=== PATIENT | male | born 1955 | race Caucasian/White ===

== ENCOUNTER 2021-11-17 06:32 | Inpatient (IN) | payer MEDICAID ==
[~2021-11-17] VITALS: Ht 182.9 cm; Wt 81.6 kg
[2021-11-17] VITALS (10 sets, daily range): BP systolic 108–138
--- NOTE | 2021-11-17 06:41 | NUR ---
PT BIBA C/O GEN WEAKNESS AND DIZZINESS SINCE 299. PER REPORT WAS COOL, PALE AND DIAPHORETIC ON SCENE. HE DENIES N/V. PMH:DM,HTN PT AAOX4, TURKMEN SPEAKING. PT TO RM1 PLACED ON CARDIAC MONITORS. REPORT GIVEN TO AMINA DIOR
--- NOTE | 2021-11-17 06:42 | NUR ---
Patient triaged and placed in room 1. VSS and patient appears in no acute distress at this time. MD Gimenez notified of need for MSE.
--- NOTE | 2021-11-17 06:48 | NUR ---
# 20 gauge angiocath placed to R AC. Use of asceptic technique. Opsite placed over site. Blood return noted. Flushed with 10 cc of normal saline. No evidence of infiltration noted. Patient tolerated well.
--- NOTE | 2021-11-17 07:00 | NUR ---
Dr. Gimenez at bedside
[2021-11-17 07:09] LABS: BASOPHILS % (AUTO) 0.3 % (0.0-2.0); EOSINOPHILS # (AUTO) 0.1 K/uL (0.0-0.4); EOSINOPHILS % (AUTO) 0.6 % (0.0-4.0); HEMATOCRIT 39.8 % (36-54); HEMOGLOBIN 13.1 g/dL (14.0-18.0); LYMPHOCYTES # (AUTO) 1.4 K/uL (1.0-5.5); LYMPHOCYTES % (AUTO) 11.5 % (20.5-51.5); MEAN CORPUSCULAR HEMOGLOBIN 28 pg (27-31); MEAN CORPUSCULAR HGB CONC 33 % (32-36); MEAN CORPUSCULAR VOLUME 84 fL (79.0-98.0); MONOCYTES # (AUTO) 0.4 K/uL (0.0-1.0); MONOCYTES % (AUTO) 3.2 % (1.7-9.3); NEUTROPHILS # (AUTO) 10.4 K/uL (1.8-7.7); NEUTROPHILS % (AUTO) 84.4 % (40.0-70.0); PLATELET COUNT (AUTO) 210 K/uL (130-430); RED BLOOD CELL COUNT(AUTO) 4.74 MIL/uL (4.2-6.2); WHITE BLOOD COUNT (AUTO) 12.4 K/uL (4.8-10.8)
[2021-11-17] MEDS ORDERED: NACL 0.9% 2,000 ML IV ONE (07:15)
--- NOTE | 2021-11-17 07:24 | NUR ---
Opening Note: Report rcvd from outgoing NOC RN, all cares assumed.
[2021-11-17 07:39] LABS: CALCIUM 9.1 mg/dL (8.4-11.0); CREATININE 0.9 mg/dL (0.55-1.30); POTASSIUM 4.7 mmol/L (3.5-5.1)
[2021-11-17 07:46] LABS: ALBUMIN 3.3 g/dL (3.4-4.8); TOTAL BILIRUBIN 0.7 mg/dL (0.0-1.0)
--- NOTE | 2021-11-17 07:47 | NUR ---
Patient stable in no acute distress and or discomfort, bed low and locked for safety.
[2021-11-17 07:57] LABS: INR 1.1 (0.80-1.20); PROTHROMBIN TIME 11.3 SECS (9.5-12.5)
[2021-11-17] MEDS ORDERED: PIPERACILLIN/TAZO 3.375 GM in NS 50 ML IV ONE (08:30)
[2021-11-17 08:38] LABS: BILIRUBIN,URINE NEGATIVE (NEGATIVE); BLOOD, URINE NEGATIVE (NEGATIVE); CLARITY/URINE CLEAR (CLEAR); COLOR,URINE YELLOW (YELLOW); GLUCOSE,URINE 3+ (NEGATIVE); KETONES,URINE 3+ (NEGATIVE); LEUKOCYTE ESTERASE ,URINE NEGATIVE (NEGATIVE); NITRITE, URINE NEGATIVE (NEGATIVE); PH,URINE 5.5 (5.0-8.0); PROTEIN URINE NEGATIVE (NEGATIVE); UROBILINOGEN,URINE 0.2 (0.2-1.0)
[2021-11-17] MEDS ORDERED: PIPERACILLIN/TAZOBACTAM 3.375 GM/VIAL (ZOSYN) IV ONE (08:49)
[2021-11-17] MEDS ORDERED: NS 500 ML IV ONE (09:15)
--- NOTE | 2021-11-17 09:15 | NUR ---
Patient taken to imaging, elbert with early childhood assistant.
--- NOTE | 2021-11-17 09:46 | NUR ---
Patient returned from imaging, stable AOx4
--- NOTE | 2021-11-17 09:52 | NUR ---
Family at bedside, all questions answered and updates given.
--- NOTE | 2021-11-17 11:10 | NUR ---
Patient attempted to ambualte to bathroom, patient became dizzy and diaphoretic, wheelchair brought and patient guided to chair. Assisted patient to bed.
[2021-11-17] MEDS ORDERED: HYDROCORTISONE SOD SUCC 100 MG/2 ML VIAL IVP ONE (11:15)
[2021-11-17] MEDS ORDERED: NOREPINEPHRINE BITARTRATE 8 MG in NS 246 ML IV ONE (11:15)
[2021-11-17] MEDS ORDERED: NACL 0.9% 1,000 ML IV ONE (11:15)
[2021-11-17] MEDS ORDERED: NOREPINEPHRINE 4 MG/4 ML VIAL IV ONE ×2 (11:24→11:29)
--- NOTE | 2021-11-17 11:46 | NUR ---
Dr. Balderas at bedside
--- NOTE | 2021-11-17 11:48 | NUR ---
Levophed on hold, patient BP 108/61
--- NOTE | 2021-11-17 11:49 | NUR ---
MRSA swab collected and sent to lab
[2021-11-17] MEDS ORDERED: METF-518 PO (12:00)
[2021-11-17] MEDS ORDERED: ROSU10TA2 PO (12:01)
[2021-11-17] MEDS ORDERED: ZIA2.5/6.25 PO (12:01)
--- NOTE | 2021-11-17 12:02 | NUR ---
Med Rec completed
[2021-11-17] MEDS ORDERED: D5NS 1,000 ML IV ONE (12:45)
[2021-11-17] MEDS ORDERED: cefTRIAXone 1 GM in D5W 50 ML IV ONE (12:45)
[2021-11-17] MEDS ORDERED: PANTOPRAZOLE SODIUM 40 MG TAB PO ONE (12:45)
--- NOTE | 2021-11-17 12:50 | NUR ---
Admit bed requested Patient will be admitted to care of Admitted to Tele unit. Diagnosis Syncope Inpatient (Yes or No) Yes Observation (Yes or No) No Orientation concerns or request close to nursing station (Yes or No) NO Covid Status Neg On vent or bipap No Isolation requirements No Needs a sitter No From Home (Yes or if No enter name of facility) Home Requires Dialysis (Yes or No) No Med Rec Completed (Yes of No) Yes
--- NOTE | 2021-11-17 12:55 | NUR ---
Patient awake, follows basic commands, no acute distress noted. Bed low and locked for safety.
[2021-11-17] MEDS ORDERED: cefTRIAXone 1 GM VIAL ONE (13:33)
[2021-11-17] MEDS: VANCOMYCIN HCL 1 GM/NS PREMIX 250 ML IV SCH (15:25)
[2021-11-17] MEDS: ALBUMIN HUMAN 25% 100 ML IV SCH ×2 (15:37→21:28)
--- NOTE | 2021-11-17 16:00 | NUR ---
RN NOTES ADMITTED FROM ER , CAME IN VIA GUILHERME ACCOMPANIED BY ER/RN. PATIENT SEEN AWAKE AND ALERT, NOT IN ACUTE DISTRESS, DENIES ANY FORM OF DISCOMFORT, WITH LEVOPHED GOING ON FOR BP SUPPORT. PT PLACED COMFORTABLY ON BED, INITIAL VITALS CHECKED AND RECORDED. PATIENT MADE COMFORTABLE. WILL CONTINUE TO MONITOR.
--- NOTE | 2021-11-17 16:00 | NUR ---
Patient received from ED with 3 RN's escorting patient from ED. Patient was transferred from the [facility] to the bed and report was given at bedside. Completed initial assessment and reinsersted IV (22 gauge in left hand). Patient visited with and brother for a short period and then they departed. Patient went back to sleep. Labs were drawn and additional orders were obtained at thi time. Patient is currently resting comfortable showing no signs or symptoms of acute distress, diaphoresis or any other examples of sepsis at this time. Patient has not pains or other needs at the end of shift.
--- NOTE | 2021-11-17 16:09 | NUR ---
Patient will be admitted to care of Dr. Balderas. Admitted to ICU unit. Will go to room ICU 6 Belongings list completed. Complete and up to date summary report printed. SBAR report to be given at bedside with opportunity for questions.
[2021-11-17 17:46] LABS: BASOPHILS % (AUTO) 0.1 % (0.0-2.0); HEMATOCRIT 29.8 % (36-54); HEMOGLOBIN 9.8 g/dL (14.0-18.0); LYMPHOCYTES # (AUTO) 1.3 K/uL (1.0-5.5); LYMPHOCYTES % (AUTO) 12.6 % (20.5-51.5); MEAN CORPUSCULAR HEMOGLOBIN 28 pg (27-31); MEAN CORPUSCULAR HGB CONC 33 % (32-36); MONOCYTES # (AUTO) 0.4 K/uL (0.0-1.0); MONOCYTES % (AUTO) 3.6 % (1.7-9.3); NEUTROPHILS # (AUTO) 8.9 K/uL (1.8-7.7); NEUTROPHILS % (AUTO) 83.7 % (40.0-70.0); PLATELET COUNT (AUTO) 168 K/uL (130-430); RED BLOOD CELL COUNT(AUTO) 3.48 MIL/uL (4.2-6.2); RED CELL DISTRIBUTION WIDTH 14.1 % (9.0-15.0); WHITE BLOOD COUNT (AUTO) 10.6 K/uL (4.8-10.8)
[2021-11-17 17:49] LABS: MEAN CORPUSCULAR VOLUME 86 fL (79.0-98.0)
[2021-11-17 17:53] LABS: ANION GAP 11 (5-15); CALCIUM 8.4 mg/dL (8.4-11.0); CHLORIDE 107 mmol/L (98-107); CREATININE 0.87 mg/dL (0.55-1.30); GLUCOSE 209 mg/dL (70-99); POTASSIUM 4.4 mmol/L (3.5-5.1); UREA NITROGEN, BLOOD 63 mg/dL (8-21)
[2021-11-17 17:55] LABS: GFR AFRICAN AMERICAN 113 mL/min (>90)
[2021-11-17 17:59] LABS: ALANINE AMINOTRANSFERASE 19 U/L (12-78); ALBUMIN 3.2 g/dL (3.4-4.8); ASPARTATE AMINOTRANSFERASE 12 U/L (10-37); C-REACTIVE PROTEIN QUANT < 0.2 mg/dL (0-0.5); TOTAL BILIRUBIN 0.6 mg/dL (0.0-1.0)
--- NOTE | 2021-11-17 19:15 | NUR ---
Opening notes Received report from endorsing morning shift RN Talib for continuity of care. Patient is sitting in bed with IVF D5NS @ 100 mL/hr. Patient's vital signs blood pressure 125/66, heart rate 104, and SPO2 95% room air. Patient uses urinal, yellow in color. Bed is locked and in lowest position, call light button within reach, fall and safety precautions is in place.
[2021-11-17] MEDS ORDERED: ALBUMIN HUMAN 25% 100 ML IV ONE (21:28)
[2021-11-17] MEDS ORDERED: INSULIN ASPART 100 UNITS/ML, 10 ML VIAL (NovoLOG) SUBCUT PRN (21:30)
--- NOTE | 2021-11-17 21:41 | NUR ---
CONSULTATION PAGED/CALLED Reason for Consultation: R/O GI BLEEDING Person Who was Notified: RAMONITA Consulting Physician: DR. ARMSTRONG Telegraph Lineman Specialty: GI Ordering Physician: DR. PEDROZA
--- NOTE | 2021-11-17 21:57 | NUR ---
MD Dr. Carrion called for updates, gave verbal report. New order given, please see emar.
[2021-11-17] MEDS ORDERED: PANTOPRAZOLE SODIUM 80 MG in NS 100 ML IV ONE (22:00)
[2021-11-17] MEDS ORDERED: METOCLOPRAMIDE HCL 10 MG/2 ML VIAL IVP ONE (22:00)
--- NOTE | 2021-11-17 22:15 | NUR ---
Greenhouse Manager Used drywall applicator to get consent from the patient for EGD procedure tomorrow morning. Greenhouse Manager ID #[id number]
[2021-11-17] MEDS ORDERED: PANTOPRAZOLE SODIUM 40 MG/VIAL (PROTONIX) ONE ×2 (22:20→23:23)
[2021-11-17] MEDS: PANTOPRAZOLE SODIUM 40 MG in NS 50 ML IV SCH (23:22)
[2021-11-18] VITALS (17 sets, daily range): BP systolic 84–132
[2021-11-18] MEDS ORDERED: ALBUMIN HUMAN 25% 100 ML IV ONE (00:45)
[2021-11-18] MEDS: ALBUMIN HUMAN 25% 100 ML IV SCH (00:55)
[2021-11-18] MEDS ORDERED: PANTOPRAZOLE SODIUM 40 MG/VIAL (PROTONIX) ONE ×2 (02:15→07:11)
[2021-11-18] MEDS: PANTOPRAZOLE SODIUM 40 MG in NS 50 ML IV SCH ×2 (02:20→07:07)
[2021-11-18] MEDS: VANCOMYCIN HCL 1 GM/NS PREMIX 250 ML IV SCH ×2 (02:38→14:05)
[2021-11-18] MEDS ORDERED: METOCLOPRAMIDE HCL 10 MG/2 ML VIAL IVP ONE (06:00)
[2021-11-18] MEDS ORDERED: METOCLOPRAMIDE HCL 10 MG/2 ML VIAL ONE (06:09)
[2021-11-18] MEDS: D5NS 1,000 ML IV SCH ×2 (06:26→14:04)
[2021-11-18 06:34] LABS: BASOPHILS % (AUTO) 0.3 % (0.0-2.0); EOSINOPHILS # (AUTO) 0.1 K/uL (0.0-0.4); EOSINOPHILS % (AUTO) 0.7 % (0.0-4.0); HEMATOCRIT 23.3 % (36-54); HEMOGLOBIN 7.9 g/dL (14.0-18.0); LYMPHOCYTES # (AUTO) 1.4 K/uL (1.0-5.5); LYMPHOCYTES % (AUTO) 18.4 % (20.5-51.5); MEAN CORPUSCULAR HEMOGLOBIN 28 pg (27-31); MEAN CORPUSCULAR HGB CONC 34 % (32-36); MEAN CORPUSCULAR VOLUME 84 fL (79.0-98.0); MONOCYTES # (AUTO) 0.5 K/uL (0.0-1.0); NEUTROPHILS # (AUTO) 5.7 K/uL (1.8-7.7); NEUTROPHILS % (AUTO) 73.6 % (40.0-70.0); PLATELET COUNT (AUTO) 133 K/uL (130-430); RED BLOOD CELL COUNT(AUTO) 2.77 MIL/uL (4.2-6.2); RED CELL DISTRIBUTION WIDTH 14.1 % (9.0-15.0); WHITE BLOOD COUNT (AUTO) 7.8 K/uL (4.8-10.8)
[2021-11-18] MEDS ORDERED: MIDAZOLAM HCL 5 MG/5 ML VIAL ONE (07:21)
[2021-11-18] MEDS ORDERED: MEPERIDINE 100 MG INJ. 100 MG/ML VIAL ONE (07:21)
[2021-11-18 07:22] LABS: ALBUMIN 3.6 g/dL (3.4-4.8); CALCIUM 8.2 mg/dL (8.4-11.0); CREATININE 0.71 mg/dL (0.55-1.30); POTASSIUM 3.5 mmol/L (3.5-5.1); TOTAL BILIRUBIN 0.7 mg/dL (0.0-1.0)
[2021-11-18] MEDS ORDERED: SIMETHICONE 40 MG/0.6 ML ML ONE (07:28)
[2021-11-18 08:07] LABS: % FREE PSA 37.5 % (.); FREE PSA 0.15 ng/mL; PROSTATE SPECIFIC AG TOTAL 0.4 ng/mL (0.0-4.0)
[2021-11-18] MEDS ORDERED: PANTOPRAZOLE SODIUM 40 MG TAB PO SCH (09:00)
--- NOTE | 2021-11-18 11:27 | NUR ---
patient blood glucoses:152, npo at this time, no insulin coverage, will continue to monitor.
--- NOTE | 2021-11-18 15:45 | NUR ---
report at this time given to jillian robles all questions answered
--- NOTE | 2021-11-18 16:12 | NUR ---
patient transferred at this time, via wheelchair, patient vitals wnl, patient denies any pain. all belongings with patient. patient phone, boiler engineer and clothes. nurse jillian at bedside all questions answered, chart given to RN.
--- NOTE | 2021-11-18 16:15 | NUR ---
TRANSFER: PATIENT TRANSFER FROM ICU TO ROOM 118B. PATIENT IS AAOX4 ABLE TO MAKE NEEDS KNOWN. AMBULATE WITH STEADY GAIT. NO C/O PAIN OR DISTRESS. EXPLAINED POC W/ COUSIN AT THE BEDSIDE DOING THE TRANSLATION AND PATIENT VERBALIZED UNDERSTANDING. BED IN LOW AND LOCK POSITION. CALL LIGHT AND BEDSIDE TABLE WITHIN REACH. STABLE CONDITION AT THIS TIME.
--- NOTE | 2021-11-18 18:43 | NUR ---
CLOSING NOTES: PATIENT IS SITTING AT THE SIDE OF THE BED CHIT CHATTING WITH HIS DAUGHTER AND OTHER FAMILY MEMBER AT THE BEDSIDE. NO ADDITIONAL DISTRESS OR PAIN NOTED. ALL NEEDS MET. STABLE CONDITION AT THIS TIME.
--- NOTE | 2021-11-18 19:20 | NUR ---
Received report at this time. Unable to clear up EMAR. All meds reported as late were given prior to shift per dayshift nurse. Pt received meds in procedure and that nurse utilizes paper documentation. BARBY Kendrick shift is 11/18/2021 [id number]
[2021-11-18] MEDS: PANTOPRAZOLE SODIUM 40 MG/VIAL (PROTONIX) IVP SCH (20:05)
--- NOTE | 2021-11-18 21:24 | NUR ---
CONSULTATION CALLED FOR DR Fili RANDOLPH FOR CONSULT OF LEUKOCYTOSIS ORDER BY DR. Beatriz HOLLOWAY SPOKE WITH NATTY
[2021-11-19 00:33] VITALS: BP_SYST 100
[2021-11-19] MEDS: D5NS 1,000 ML IV SCH ×2 (02:00→05:49)
[2021-11-19] MEDS ORDERED: VANCOMYCIN HCL 1000 MG/VIAL IV ONE (02:57)
[2021-11-19] MEDS: VANCOMYCIN HCL 1 GM/NS PREMIX 250 ML IV SCH (03:14)
[2021-11-19 06:59] LABS: ALBUMIN 3.1 g/dL (3.4-4.8); BASOPHILS % (AUTO) 0.5 % (0.0-2.0); CALCIUM 7.9 mg/dL (8.4-11.0); CREATININE 0.66 mg/dL (0.55-1.30); EOSINOPHILS # (AUTO) 0.2 K/uL (0.0-0.4); EOSINOPHILS % (AUTO) 3.3 % (0.0-4.0); LYMPHOCYTES # (AUTO) 1.1 K/uL (1.0-5.5); LYMPHOCYTES % (AUTO) 15.6 % (20.5-51.5); MEAN CORPUSCULAR HEMOGLOBIN 28 pg (27-31); MEAN CORPUSCULAR HGB CONC 34 % (32-36); MEAN CORPUSCULAR VOLUME 84 fL (79.0-98.0); MONOCYTES # (AUTO) 0.4 K/uL (0.0-1.0); MONOCYTES % (AUTO) 5.7 % (1.7-9.3); NEUTROPHILS # (AUTO) 5.1 K/uL (1.8-7.7); NEUTROPHILS % (AUTO) 74.9 % (40.0-70.0); PLATELET COUNT (AUTO) 129 K/uL (130-430); POTASSIUM 3.8 mmol/L (3.5-5.1); RED BLOOD CELL COUNT(AUTO) 2.44 MIL/uL (4.2-6.2); RED CELL DISTRIBUTION WIDTH 14.1 % (9.0-15.0); TOTAL BILIRUBIN 0.5 mg/dL (0.0-1.0); WHITE BLOOD COUNT (AUTO) 6.8 K/uL (4.8-10.8)
--- NOTE | 2021-11-19 07:30 | NUR ---
OPENING NOTES: PATIENT IS RESTING IN BED QUIETLY. AAOX4, ABLE TO MAKE NEEDS KNOWN. AMBULATE WITH STEADY GAIT. NO C/O PAIN OR DISTRESS. BED IN LOW AND LOCK POSITION. CALL LIGHT AND BEDSIDE TABLE WITHIN REACH. STABLE CONDITION AT THIS TIME
[2021-11-19 08:00] VITALS: BP_SYST 108
[2021-11-19 08:16] LABS: HEMATOCRIT 20.5 % (36-54); HEMOGLOBIN 6.9 g/dL (14.0-18.0)
[2021-11-19] MEDS: PANTOPRAZOLE SODIUM 40 MG/VIAL (PROTONIX) IVP SCH ×2 (08:21→20:46)
--- NOTE | 2021-11-19 08:53 | NUR ---
[phone]: SPOKE WITH Juan Carlos ONEILL AND GAVE NEW ORDER OF 1U PRBC TO TRANSFUSE TODAY.
--- NOTE | 2021-11-19 09:25 | NUR ---
TRANSFUSION CONSENT: VIDEO CALL ADZING AND BORING MACHINE FEEDER (KEN #[id number]) WAS USED TO TRANSLATE 1U PRBC TRANSFUSION TODAY. PATIENT VERBALIZED UNDERSTANDING AND SIGNED CONSENT.
--- NOTE | 2021-11-19 09:30 | NUR ---
2U PRBC: DR. SALGADO AT THE BEDSIDE AND ORDER 2U OF PRBC INSTEAD OF 1U PRBC AND EXPLAINED POC TO PATIENT. MD ABLE TO SPEAK GEORGIAN WITH PATIENT. PATIENT VERBALIZED UNDERSTANDING.
--- NOTE | 2021-11-19 11:30 | NUR ---
NPO: NPO FOR U/S ABD COMPLETE TODAY TO R/O GALLSTONES TILL 1600. BLOOD SUGAR 208. HELD INSULIN.
[2021-11-19 12:00] VITALS: BP_SYST 121
[2021-11-19] MEDS: VANCOMYCIN HCL 1,250 MG in NS 250 ML IV SCH ×2 (15:19→21:13)
[2021-11-19 16:00] VITALS: BP_SYST 122
--- NOTE | 2021-11-19 16:30 | NUR ---
US ABD COMPLETE: TECH AT THE BEDSIDE.
--- NOTE | 2021-11-19 18:41 | NUR ---
CLOSING NOTES: PATIENT IS RESTING IN BED WATCHING TV. NO ADDITIONAL DISTRESS OR PAIN NOTED. ALL NEEDS MET. STABLE CONDITION AT THIS TIME.
--- NOTE | 2021-11-19 19:30 | NUR ---
Opening note Received report from day shift. Pt is awake sitting up at the edge of the bed, no s/s of respiratory distress. Breathing even and unlabored. No c/o of pain. IV site intact and patent saline lock. Fall and safety precautions in place with bed in lowest position and call light within reach
[2021-11-19 20:00] VITALS: BP_SYST 122
--- NOTE | 2021-11-20 00:15 | NUR ---
Rounds Pt is awake lying in bed using his cellphone. No s/s of acute distress. VSS. Fall and safety checks in place
[2021-11-20 00:50] VITALS: BP_SYST 117
--- NOTE | 2021-11-20 04:04 | NUR ---
BLOOD BANK: Per blood bank there is a shortage of O positive blood from [place], 2 units of PRBCs still not delivered
[2021-11-20] MEDS: VANCOMYCIN HCL 1,250 MG in NS 250 ML IV SCH ×2 (06:09→14:47)
--- NOTE | 2021-11-20 06:47 | NUR ---
Closing note Pt is awake sitting up in bed. No s/s of acute distress. Denies dizziness or BM last night or this morning. Still waiting on PRBCs, will endorse to day nurse. Fall and safety checks in place with bed in lowest position and call light within reach
[2021-11-20 08:09] LABS: ALANINE AMINOTRANSFERASE 18 U/L (12-78); ALBUMIN 3.2 g/dL (3.4-4.8); ANION GAP 6 (5-15); ASPARTATE AMINOTRANSFERASE 14 U/L (10-37); CALCIUM 8.1 mg/dL (8.4-11.0); CHLORIDE 104 mmol/L (98-107); CREATININE 0.76 mg/dL (0.55-1.30); GLUCOSE 159 mg/dL (70-99); TOTAL BILIRUBIN 0.7 mg/dL (0.0-1.0); UREA NITROGEN, BLOOD 7 mg/dL (8-21)
[2021-11-20 08:48] LABS: C-REACTIVE PROTEIN QUANT < 0.2 mg/dL (0-0.5); GFR AFRICAN AMERICAN 132 mL/min (>90)
[2021-11-20] MEDS ORDERED: GLUCOSE (DEXTROSE) ORAL GEL -Adults PO PRN (09:00)
[2021-11-20] MEDS ORDERED: DEXTROSE 50%-WATER 50 ML DISP.SYRIN IVP PRN (09:00)
[2021-11-20] MEDS ORDERED: D5W 1,000 ML IV PRN (09:00)
[2021-11-20 09:40] LABS: BASOPHILS % (AUTO) 0.3 % (0.0-2.0); EOSINOPHILS # (AUTO) 0.2 K/uL (0.0-0.4); EOSINOPHILS % (AUTO) 4.3 % (0.0-4.0); HEMOGLOBIN 7.1 g/dL (14.0-18.0); LYMPHOCYTES % (AUTO) 19.7 % (20.5-51.5); MEAN CORPUSCULAR HEMOGLOBIN 29 pg (27-31); MEAN CORPUSCULAR HGB CONC 34 % (32-36); MEAN CORPUSCULAR VOLUME 85 fL (79.0-98.0); MONOCYTES # (AUTO) 0.4 K/uL (0.0-1.0); MONOCYTES % (AUTO) 7.4 % (1.7-9.3); NEUTROPHILS # (AUTO) 3.4 K/uL (1.8-7.7); NEUTROPHILS % (AUTO) 68.3 % (40.0-70.0); PLATELET COUNT (AUTO) 127 K/uL (130-430); RED BLOOD CELL COUNT(AUTO) 2.48 MIL/uL (4.2-6.2); RED CELL DISTRIBUTION WIDTH 14.1 % (9.0-15.0); WHITE BLOOD COUNT (AUTO) 4.9 K/uL (4.8-10.8)
[2021-11-20] MEDS: PANTOPRAZOLE SODIUM 40 MG/VIAL (PROTONIX) IVP SCH (09:58)
[2021-11-20 10:24] LABS: HEMATOCRIT 21.1 % (36-54)
[2021-11-20 11:29] VITALS: BP_SYST 122
[2021-11-20 12:08] LABS: ERYTHROCYTE SEDIMENTATION RATE 10 MM/HR (0-15)
--- NOTE | 2021-11-20 13:30 | NUR ---
bs 213. pt refused for insulin as per ss. primary rn raul made aware.
[2021-11-20] MEDS ORDERED: INSULIN LISPRO SLIDING SCALE 100 UNITS/ML, 3 ML VIAL (humaLOG) SUBCUT PRN (13:45)
[2021-11-20] MEDS ORDERED: PRO40 PO ×2 (15:15→15:16)
[2021-11-20] MEDS ORDERED: SUCR1TAB2 PO (15:17)
--- NOTE | 2021-11-20 15:50 | NUR ---
Dietitian Recommendations * When medically appropriate, advance to GI soft diet * Encourage good PO intake * Recommend daily MVI Please refer to nutrition assessment for details, thanks! CC, MPH, RDN
--- NOTE | 2021-11-20 16:24 | NUR ---
0800: NO ABDOMINAL DISCOMFORT NOTED. HGB 7.1, TO RECEIVE 1 UNIT PRBC TRANSFUSION ONCE BLOOD IS AVAILABLE. NO S/S OF ANY BLEEDING NOTED. WILL CONTINUE TO REASSESS PATIENT PRN. 1120: BLOOD TRANSFUSION STARTED, WILL CONTINUE TO ASSESS FOR ANY ADVERSE REACTION DURING AND POST TRANSFUSION 1500: BLOOD TRANSFUSION COMPLETED NO ADVERSE REACTION NOTED. WILL CONTINUE TO MONITOR PATIENT. 1600: PATIENT DISCHARGE HOME WITH NEW PRESCRIPTION FOR PROTONIX AND CARAFATE. TO CONTINUE OTHER HOME MEDICATION BEFORE. PATIENT FAMILY AND PATIENT BOTH VERBALIZE UNDERSTANDING AND WILL COMPLY WITH INSTRUCTION GIVEN.
--- NOTE | 2021-11-21 08:35 | NUR ---
Dispo code 01
== END 2021-11-20 16:24 | disposition home or self-care (01) | DRG 240 ==
LOC: SED 06:32 → STU 12:37 → SIC 16:08 → OBSVTOIN 16:39 → STU 11-18 16:00
PROVIDERS: ADMIT Specialist; ATTEND Specialist
PROC: 0DB78ZX Excision of Stomach, Pylorus, Via Natural or Artificial Opening Endoscopic, Diagnostic (ICD-10-PCS; principal; 2021-11-18 08:00)
DX: C16.9 Malignant neoplasm of stomach, unspecified (principal); N17.9 Acute kidney failure, unspecified; K25.4 Chronic or unspecified gastric ulcer with hemorrhage; A04.5 Campylobacter enteritis; E44.1 Mild protein-calorie malnutrition; D64.9 Anemia, unspecified; E11.65 Type 2 diabetes mellitus with hyperglycemia; E66.9 Obesity, unspecified; E78.00 Pure hypercholesterolemia, unspecified; E78.5 Hyperlipidemia, unspecified; E86.0 Dehydration; F17.200 Nicotine dependence, unspecified, uncomplicated; I10 Essential (primary) hypertension; J44.9 Chronic obstructive pulmonary disease, unspecified; K29.70 Gastritis, unspecified, without bleeding; K29.80 Duodenitis without bleeding; Z20.822 Contact with and (suspected) exposure to COVID-19; Z79.84 Long term (current) use of oral hypoglycemic drugs; Z79.899 Other long term (current) drug therapy; Z68.24 Body mass index [BMI] 24.0-24.9, adult; Z56.0 Unemployment, unspecified
CPT/HCPCS: 36415; 36600; 43239; 71045; 76376; 76700-TC; 80048; 80053; 80202; 81003; 82272; 82533; 82803-TC; 82962; 83036; 83605; 83690; 84153; 84484; 85025; 85379; 85610-TC; 85651-TC; 85730-TC; 86140; 86886; 86900; 86901; 86920; 87040; 87081; 87086; 88305; 88312; 88313; 88342; 93005; 93306; 96365; 96375; 99291; C9113; G0378; J0696; J1720; J1815; J2175; J2250; J2543; J2765; J3370; J7030; J7042; J7050; J7060; P9021; P9046

== ENCOUNTER 2022-04-10 01:41 | Emergency (ER) | payer MEDICAID ==
[~2022-04-10] VITALS: Ht 175.3 cm; Wt 74.4 kg
[~2022-04-10 01:41] MED LIST: METF-518 PO; PRO40 PO; ROSU10TA2 PO; SUCR1TAB2 PO; ZIA2.5/6.25 PO
[2022-04-10 01:46] VITALS: BP_SYST 113
--- NOTE | 2022-04-10 01:46 | NUR ---
Patient triaged and placed in ER bed 5 for evaluation. VSS, denied any acute respiratory distress at this time. Son at bedside. Report given to Kim DIOR for continuity of care. Instructed to notify ED staff for any changes in condition or worsening of symptoms. Patient verbalized understanding.
--- NOTE | 2022-04-10 01:58 | NUR ---
Dr. Sousa at bedside examining the patient.
--- NOTE | 2022-04-10 02:02 | NUR ---
ACTIVATED CODE STROKE PER DR. ALICEA.
--- NOTE | 2022-04-10 02:03 | NUR ---
PRESS BOX CUSTODIAN AT BEDSIDE.
--- NOTE | 2022-04-10 02:05 | NUR ---
# 20 gauge angiocath placed to R AC. Use of asceptic technique. Opsite placed over site. Blood return noted. Blood for lab drawn from site. Flushed with 10 cc of normal saline. No evidence of infiltration noted. Patient tolerated well.
--- NOTE | 2022-04-10 02:07 | NUR ---
TELEHEALTH AT BEDSIDE.
[2022-04-10 02:55] LABS: BASOPHILS % (AUTO) 0.5 % (0.0-2.0); EOSINOPHILS # (AUTO) 0.1 K/uL (0.0-0.4); EOSINOPHILS % (AUTO) 1.5 % (0.0-4.0); HEMATOCRIT 27.6 % (36-54); LYMPHOCYTES # (AUTO) 1.3 K/uL (1.0-5.5); LYMPHOCYTES % (AUTO) 25.8 % (20.5-51.5); MEAN CORPUSCULAR HEMOGLOBIN 34 pg (27-31); MEAN CORPUSCULAR HGB CONC 33 % (32-36); MEAN CORPUSCULAR VOLUME 103 fL (79.0-98.0); MONOCYTES # (AUTO) 0.5 K/uL (0.0-1.0); MONOCYTES % (AUTO) 10.7 % (1.7-9.3); NEUTROPHILS % (AUTO) 61.5 % (40.0-70.0); PLATELET COUNT (AUTO) 300 K/uL (130-430); RED BLOOD CELL COUNT(AUTO) 2.67 MIL/uL (4.2-6.2); RED CELL DISTRIBUTION WIDTH 27.1 % (9.0-15.0); WHITE BLOOD COUNT (AUTO) 4.9 K/uL (4.8-10.8)
[2022-04-10 03:14] LABS: CALCIUM 8.6 mg/dL (8.4-11.0); CREATININE 0.43 mg/dL (0.55-1.30)
--- NOTE | 2022-04-10 03:17 | NUR ---
RAD at bedside for imaging.
[2022-04-10 03:20] LABS: INR 1.2 (0.80-1.20); PROTHROMBIN TIME 11.9 SECS (9.5-12.5)
[2022-04-10 03:27] LABS: TOTAL BILIRUBIN 0.6 mg/dL (0.0-1.0)
[2022-04-10 03:41] LABS: BILIRUBIN,URINE NEGATIVE (NEGATIVE); BLOOD, URINE NEGATIVE (NEGATIVE); CLARITY/URINE CLEAR (CLEAR); COLOR,URINE YELLOW (YELLOW); GLUCOSE,URINE NEGATIVE (NEGATIVE); KETONES,URINE NEGATIVE (NEGATIVE); LEUKOCYTE ESTERASE ,URINE NEGATIVE (NEGATIVE); NITRITE, URINE NEGATIVE (NEGATIVE); PH,URINE 5.5 (5.0-8.0); PROTEIN URINE NEGATIVE (NEGATIVE); UROBILINOGEN,URINE 0.2 (0.2-1.0)
[2022-04-10 03:57] LABS: BARBITURATE, URINE NEGATIVE (NEG <=200); BENZODIAZEPINE, URINE NEGATIVE (NEG <=150); CANNABINOID, URINE NEGATIVE (NEG <=50); COCAINE, URINE NEGATIVE (NEG <=150); METHAMPHETAMINES SCREEN,URINE NEGATIVE (NEG <=500); OPIATE, URINE POSITIVE (NEG <=100); PHENCYCLIDINE SCREEN,URINE NEGATIVE (NEG <=25); UR TRICYCLIC ANTIDEPRESSANTS NEGATIVE (NEG <=300); URINE AMPHETAMINE NEGATIVE (NEG <=500); URINE METHADONE NEGATIVE (NEG <=200); URINE OXYCODONE SCREEN NEGATIVE (NEG <=100); URINE PROPOXYPHENE SCREEN NEGATIVE (NEG <=300)
[2022-04-10 04:16] VITALS: BP_SYST 108
--- NOTE | 2022-04-10 04:16 | NUR ---
Patient given written and verbal discharge instructions and verbalizes understanding. ER MD Sousa discussed with patient the results and treatment provided. Patient in stable condition. ID arm band removed. IV catheter removed intact and dressing applied, no active bleeding. Opportunity for questions provided and answered.
== END 2022-04-10 04:16 | disposition home or self-care (01) ==
LOC: SED 01:41
DX: S09.90XA Unspecified injury of head, initial encounter (principal); R42 Dizziness and giddiness; F07.81 Postconcussional syndrome; W18.30XA Fall on same level, unspecified, initial encounter; Y93.89 Activity, other specified; Y92.89 Other specified places as the place of occurrence of the external cause; Y99.8 Other external cause status
CPT/HCPCS: 36415; 70450-TC; 71045; 76376; 80053; 80307; 81003; 82962; 84484; 85025; 85610-TC; 85730-TC; 86886; 86900; 86901; 93005; 99285